=== PATIENT | male | born 1985 | race Caucasian/White ===

== ENCOUNTER 2016-12-15 13:47 | Emergency (ER) | payer SELFPAY ==
[2016-12-15] MEDS ORDERED: SODIUM CHLORIDE 0.9% 1,000 ML ONE ×2 (15:53→16:09)
[2016-12-15] MEDS ORDERED: ONDANSETRON 4 MG VIAL ONE (16:09)
[2016-12-15] MEDS ORDERED: KETOROLAC 30 MG/ML VIAL ONE (16:09)
[2016-12-15] MEDS ORDERED: CEFTRIAXONE 1 GM VIAL ONE (16:29)
[2016-12-15] MEDS ORDERED: SODIUM CHLORIDE 0.9% 100 ML IV ONE (16:29)
== END 2016-12-15 18:36 | disposition home or self-care (01) ==
LOC: ER 14:05
DX: N20.2 Calculus of kidney with calculus of ureter (principal)
CPT/HCPCS: 36415; 74176; 80053; 81001; 83690; 85025; 96361; 96374; 96375